=== PATIENT | female | born 1990 | race African-American/Black ===

== ENCOUNTER 2016-09-06 12:22 | Emergency (ER) | payer MEDICAID, OTHER ==
[~2016-09-06] VITALS: Ht 157.5 cm; Wt 60.8 kg
[2016-09-06 12:34] VITALS: BP 130/72
--- NOTE | 2016-09-06 13:02 | NUR ---
PT AMBULATED TO BED 8
--- NOTE | 2016-09-06 13:05 | NUR ---
26/F presents to ED with complaints of fever x1 day accompanied with body aches and headache. Patient denies cough, SOB, chest pain, congestion. Lungs clear bilaterally. Denies N/V/D. Reports having decrease in appetite. Pt is AOX4, skin warm and dry, normal in color for ethnicity. Pt also c/o generalized weakness. Pt is with her 1 year old daughter at bedside who is also a patient. Pt appears calm and no visible signs of distress noted.
--- NOTE | 2016-09-06 13:58 | NUR ---
PT LYING COMFORTABLY ON BED.PT AAOX4.NO ACUTE DISTRESS NOTED AT THIS TIME.SAFETY PRECAUTION INSTITUTED.WILL CONTINUE TO MONITOR PT.
--- NOTE | 2016-09-06 15:07 | NUR ---
Patient being evaluated by shaina at bedside.
--- NOTE | 2016-09-06 15:08 | NUR ---
Patient being evaluated by physician at bedside.
[2016-09-06] MEDS ORDERED: KETOROLAC 60 MG/2 ML VIAL IM ONE (15:20)
--- NOTE | 2016-09-06 15:43 | NUR ---
PT AAOX4 ,STANDING BESIDE HER DAUGHTER. NO ACUTE DISTRESS NOTED AT THIS TIME. NEEDS ATTENDED. WILL CONTINUE TO MONITOR PT.
[2016-09-06 15:58] VITALS: BP 114/71
== END 2016-09-06 15:56 | disposition home or self-care (01) ==
LOC: MED 12:22
DX: J11.1 Influenza due to unidentified influenza virus with other respiratory manifestations (principal); F17.200 Nicotine dependence, unspecified, uncomplicated
CPT/HCPCS: 81002; 81025; 96372; 99283; J1885

== ENCOUNTER 2017-02-15 13:01 | Emergency (ER) | payer MEDICAID ==
[~2017-02-15] VITALS: Ht 157.5 cm; Wt 61.2 kg
[2017-02-15 13:19] VITALS: BP 119/71
--- NOTE | 2017-02-15 14:47 | NUR ---
PATIENT TO BED 7 AT THIS TIME.
--- NOTE | 2017-02-15 15:01 | NUR ---
26/F c/o left hip and left leg pain s/p trip and fall today. Pt describes pain as aching, severe, constant, radiating from left hip to left leg, 04/08. Ambulatory with steady gait. No shortening or deformity noted. Pedal pulses strong and equal bilaterally +2. Capillary refill less than 3 seconds. Sensation intact. AOX4, skin warm and dry. VSS.
--- NOTE | 2017-02-15 15:06 | NUR ---
Patient being evaluated by physician at bedside.
[2017-02-15] MEDS ORDERED: KETOROLAC 60 MG/2 ML VIAL IM ONE (15:10)
--- NOTE | 2017-02-15 15:20 | NUR ---
Pt taken to x-ray via w/c.
--- NOTE | 2017-02-15 15:41 | NUR ---
Pt returned from x-ray.
[2017-02-15 17:00] VITALS: BP 111/87
--- NOTE | 2017-02-15 17:01 | NUR ---
Patient discharged with v/s stable. Written and verbal after care instructions given and explained. Patient alert, oriented and verbalized understanding of instructions. Ambulatory with steady gait. All questions addressed prior to discharge. ID band removed. Patient advised to follow up with PMD. Rx of MOTRIN, FLEXERIL given. Patient educated on indication of medication including possible reaction and side effects. Opportunity to ask questions provided and answered.
== END 2017-02-15 17:01 | disposition home or self-care (01) ==
LOC: MED 13:01
DX: S30.0XXA Contusion of lower back and pelvis, initial encounter (principal); W01.0XXA Fall on same level from slipping, tripping and stumbling without subsequent striking against object, initial encounter; Y93.01 Activity, walking, marching and hiking; Y92.89 Other specified places as the place of occurrence of the external cause; Y99.8 Other external cause status
CPT/HCPCS: 72170; 73552; 81002; 81025; 96372; 99284; J1885; J7030